=== PATIENT | female | born 1985 | race Caucasian/White ===

== ENCOUNTER 2020-03-10 17:59 | Emergency (ER) | payer OTHER ==
[~2020-03-10] VITALS: Ht 182.9 cm; Wt 133.8 kg
[2020-03-10] MEDS ORDERED: AMITRIPTYLINE H50 MG PO (18:20)
[2020-03-10] MEDS ORDERED: LAMICTAL200 MG PO (18:20)
== END 2020-03-10 21:13 | disposition home or self-care (01) ==
LOC: ED 17:59
DX: L03.211 Cellulitis of face (principal); I10 Essential (primary) hypertension; G43.909 Migraine, unspecified, not intractable, without status migrainosus; Z88.8 Allergy status to other drugs, medicaments and biological substances; Z79.899 Other long term (current) drug therapy
CPT/HCPCS: 80053; 83605; 85025; 96365; 96375; 99283-25; J0696; J1885; J7030

== ENCOUNTER 2020-03-14 13:30 | Inpatient (IN) | payer OTHER ==
[~2020-03-14] VITALS: Ht 182.9 cm; Wt 137.1 kg
[~2020-03-14 13:30] MED LIST: AMITRIPTYLINE H50 MG PO; LAMICTAL200 MG PO
--- OUTSIDE RECORDS SUMMARY | 2020-03-14 13:34 | XMS ---
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 Stephanie VISIT COUNT (12 [address] [facility] TOTAL 2 NOTE: Visits indicate total known visits. ED/UCC VISIT TRACKING (12 MO.) 03/14/2020 13:32 [facility] [place] TYPE: Emergency COMPLAINT: - FLU SYMPTOMS 03/10/2020 18:01 [facility] TYPE: Emergency COMPLAINT: - SORE CHIN DIAGNOSES: - Migraine, unspecified, not intractable, without status migrainosus - Cellulitis of face - Allergy status to other drugs, medicaments and biological substances - Other director long term care (current) drug therapy - Essential (primary) hypertension INPATIENT VISIT TRACKING (12 MO.) No inpatient visits to display in this time frame [email or web address]
[2020-03-14] MEDS ORDERED: ONDANSETRON ODT8 MG PO (13:50)
[2020-03-14] MEDS ORDERED: MUPIROCIN22 GM (14:02)
[2020-03-14] MEDS ORDERED: TRAMADOL HCL50 MG PO (14:03)
[2020-03-14] MEDS ORDERED: CLINDAMYCIN HC300 MG PO (14:03)
--- NOTE | 2020-03-14 19:25 | NUR ---
PT TO CCU AT 1823, TRANSPORTED VIA WHEELCHAIR. PT POLLO ACTIVITY WELL, HOWEVER REPORTS FATIGUE AND "FEEL CRAPPY". PT IS ALERT AND ORIENTED X4, REPORTS MILD NAUSEA, DENIES PAIN, AND REPORTS SOB WITH AMBULATION. PT O2 REMAINS 90% WITH ACTIVITY ON ROOM AIR. PT ABLE TO AMBULATE TO THE BATHROOM WITH MINIMAL STANDBY ASSIST, VOIDS AND THEN BACK TO BED. PT IV SITE IS INTACT, NO REDNESS OR SWELLING, FLUSHES EASILY, PT DENIES PAIN WITH FLUSH. VITALS ARE WNL. PT TAKES PO COUGH MEDS, THEN SHORTLY AFTER VOMITS THEM UP, 10 MG COMPAZINE IV GIVEN. WARM PACK APPLIED TO PT CHIN.
--- NOTE | 2020-03-14 19:28 | NUR ---
report recieved from ccu rn, care of patient assumed at this time. pt resting in bed but awake. provided education about plan of care.
--- NOTE | 2020-03-14 19:45 | NUR ---
PTS OXYGEN SATURATIONS MAINTAINED IN THE MID 80'S WHILE PT IS AWAKE. COACHED PT TO REPOSITION AND TAKE DEEP BREATHS FROM DOOR WAY. SPO2 = 93 ON ROOM AIR AT THIS TIME. WILL CLOSELY MONITOR.
--- NOTE | 2020-03-14 20:04 | NUR ---
INITIAL ASSESSMENT COMPLETED AT THIS TIME. PT O2 SATURATION DECREASED INTO THE LOW 80S AT REST, RR=24. PT PLACED ON 2 L NC FOR SLEEP AT THIS TIME. LUNGS SOUND DIMINISHED IN ALL AIRFIELD. PT COMPLAINS OF ABDOMINAL CRAMPING BUT DENIES NAUSEA AT THIS TIME. VANCOMYCIN INFUSING. OTHER MEDICATIONS GIVEN. DISCUSSED PLAN OF CARE FOR EVENING. PT VERBALIZED AN UNDERSTANDING, ALL QUESTIONS ANSWERED. CALL LIGHT WITHIN REACH. NO FURTHER NEEDS AT THIS TIME.
--- NOTE | 2020-03-14 20:58 | NUR ---
PT RESTING WITH EYES CLOSED. BREATHING EVEN AND UNLABORED. SPO2 = 95 PERCENT ON 2 L NC. IV FLUIDS INFUSING. WILL CONTINUE TO MONITOR.
--- NOTE | 2020-03-14 21:28 | NUR ---
DR MOREL UPDATED ON PTS EPISODES OF DESATURATION WHILE AWAKE. NO NEW ORDERS AT THIS TIME.
--- NOTE | 2020-03-14 22:45 | NUR ---
Pt up in room independently to use bsc. heart rate up to 120 with exertion. spo2 = 90 percent on 2 L NC. rr in the high 20's with movement. pt back in bed at this time.
--- NOTE | 2020-03-14 23:28 | NUR ---
Pt's IV site reddened and painful. dc'd a this time. New IV inserted into left hand. well tolerated by patient. remdesivir infusing. Assessment completed. discussed new medications with patient. oxygen decreased to 1 L NC at this time. call light within reach. pt denies further needs.
--- NOTE | 2020-03-14 23:56 | NUR ---
pt given prn medication for sleep. no further needs at this time.
--- NOTE | 2020-03-15 01:00 | NUR ---
pt oxygen saturations at 88 percent on 1 L nc. Oxygen increased to 2 L at this time. saturations maintained at 92 percent on 2 L.
--- NOTE | 2020-03-15 03:00 | NUR ---
pt sleeping. breathing even and unlabored rr= 22. spo2 =90 percent on 2 L NC.
--- NOTE | 2020-03-15 04:30 | NUR ---
in room at this time to complete assessment. pt denies nausea or abdominal pain. Pt heart rate still goes over 100 bpm with exertion. IV fluids infusing. call light within reach. no further needs at this time.
--- NOTE | 2020-03-15 08:30 | NUR ---
PATIENT ASSESSMENT COMPLETED AND MORNING MEDS GIVEN. PT. ALERT AND ORIENTED. IV SITE WNL AND FLUSHED WELL. LUNGS CLEAR THROUGHOUT. PT. STATES SHES HAD SOME ABDOMINAL CRAMPING BUT DENIES PAIN. PT. EDUCATED ABOUT MEDS AND PLAN OF CARE FOR THE DAY. VOIDED 925ML CLEAR YELLOW URINE. LABS DRAWN. PT. STATES SHE HAS BEEN NAUSEATED FOR 3 DAYS. ORDERED JELLO FOR BREAKFAST AND LUNCH. PT. LEFT RESTING IN BED WITH CALL LIGHT IN REACH.
--- NOTE | 2020-03-15 12:15 | NUR ---
PATIENT ASSESSMENT COMPLETED. PT. ASSISTED WITH BEDBATH AND TOLERATED WELL. IV SITE WNL AND FLUSHED WELL. PT. VOIDED 1100ML IN BEDSIDE COMMODE. EDUCATED ABOUT PRONING AND SITTING UPRIGHT. BEDDING AND GOWN CHANGED. PT. LEFT EATING LUNCH IN THE CHAIR WITH CALL LIGHT IN REACH.
--- NOTE | 2020-03-15 12:38 | EKG ---
[facility] [address] [place] [address] Signed Normal sinus rhythm Minimal voltage criteria for LVH, may be normal variant Borderline ECG No previous ECGs available Confirmed by GUMARO MOREL DO ([id number]) on 03/15/2020 12:38:46 PM Electronically Signed By: GUMARO MOREL DO 03/15/20 1238 PATIENT NAME: SAMUELEMMA Electrocardiogram DATE OF : 89 PHYSICIAN: GUMARO MOREL DO REPORT #: [id number] REPORT IS CONFIDENTIAL AND NOT TO BE RELEASED WITHOUT AUTHORIZATION
--- NOTE | 2020-03-15 14:15 | NUR ---
IN PATIENT'S ROOM TO HELP HER CHANGE GOWN AFTER BLOODY NOSE. BLOOD PRESSURES RE-TAKEN AND DIASTOLIC BP NOTED TO BE ELEVATED, 109-111. PT STATES THIS IS NOT NORMAL FOR HER. WILL CONTINUE TO MONITOR.
--- NOTE | 2020-03-15 15:15 | NUR ---
PATIENT CHECKED ON FROM THE DOOR. PT. AMBULATING FROM THE CHAIR TO THE BED. DENIES NEEDS AND STATES SHE IS DOING WELL.
--- NOTE | 2020-03-15 16:24 | NUR ---
PATIENT ASSESSMENT COMPLETED. PT. ORDERED DINNER AND DENIES NAUSEA. ON 2L NC AND 02 SAT IS 97%. IV SITE WNL. PT. HAS 2/10 PAIN FROM HEADACHE. VOIDED 400ML IN BEDSIDE COMMODE. TEMP. 98.3. PT. LEFT RESTING IN BED WITH CALL LIGHT IN REACH.
--- NOTE | 2020-03-15 17:36 | NUR ---
PATIENT BROUGHT DINNER AND STATED THAT SHE FEELS NAUSEOUS. GIVEN PRN COMPAZINE. PT. REPORTS THAT HER BREATHING FEELS BETTER WHILE SITTING UPRIGHT IN CHAIR AND IN BED. LEFT RESTING IN BED WITH CALL LIGHT IN REACH.
--- NOTE | 2020-03-15 19:30 | NUR ---
Report recieved from CCU RN. Care of patient assumed at this time. PT sleeping in room, breating even and unlabored. SPO2 = 98 percent on room air.
--- NOTE | 2020-03-15 20:25 | NUR ---
In room for medication administration and to complete assessment. Pt alert and oriented. Hear rate in the 90s at rest spo2 =98 percent on 2 L NC. turned Oxygen down to 1 L at this time. Established plan of care for evening. Pt agreeable to trying cpap for the night. assisted with repositioning in the bed. call light within reach. no further needs at this time.
--- NOTE | 2020-03-15 22:00 | NUR ---
PT ASLEEP ON CPAP. SPO2 = 90% HEART RATE IN THE 80'S AT REST. CALL LIGHT AND PERSONAL BELONGINGS WITHIN REACH. NO ASSESSED NEEDS AT THIS TIME.
--- NOTE | 2020-03-15 22:45 | NUR ---
RT IN ROOM AT THIS TIME TO PLACE PATIENT ON BIPAP.
--- NOTE | 2020-03-16 | NUR ---
RT IN ROOM AT THIS TIME. PT RESTING ON CPAP. SPO2 = 92% UP TO BATHROOM. HEART RATE UP TO 110 WITH ACTIVITY. PT DENIES ANY NEEDS AT THIS TIME.
--- NOTE | 2020-03-16 02:00 | NUR ---
pt up to void. Used call light to assist with putting Cpap back in place. call light within reach. no further needs.
--- NOTE | 2020-03-16 04:54 | NUR ---
assessment completed and AM labs drawn at this time. Pt awake. denies shortness of breath or nausea. blood draw well tolerated. discussed plan of care for day shift. questions answered. call light within reach. no futher needs a this time.
--- NOTE | 2020-03-16 09:52 | NUR ---
REPORT RECEIVED FROM NIGHT RN AND PT. CARE RESUMED. PATIENT ASSESSMENT COMPLETED AND MORNING MEDS GIVEN. PT. EATING BREAKFAST IN THE CHAIR. DENIES PAIN AND NAUSEA. IV SITE WNL AND FLUSHES WELL. IV FLUIDS DC'D AND IV SALINE LOCKED. PT. REPORTS SHE IS NO LONGER DIZZY WITH AMBULATION. VOIDED 900 ML CLEAR YELLOW URINE IN BEDSIDE COMMODE. PLAN TO MOVE PT. TO ROOM 127 LATER IN THE DAY SO SHE CAN SHOWER.
--- NOTE | 2020-03-16 10:27 | NUR ---
PATIENT TRANSFERRED TO ROOM 126. PT. AMBULATED INDEPENDENTLY ON ROOM AIR TO THE ROOM. HR INCREASED TO 122 WITH AMBULATION, BUT PT. O2 SAT REMAINED ABOVE 94%. PT. LEFT RESTING IN BED WITH CALL LIGHT IN REACH.
--- NOTE | 2020-03-16 11:00 | NUR ---
PATIENT TAKING A SHOWER INDEPENDENTLY. WILL CONTINUE TO MONITOR.
--- NOTE | 2020-03-16 11:45 | NUR ---
PATIENT COMPLETED SHOWER AND PERSONAL CARE INDEPENDENTLY. O2 SAT REMAINED ABOVE 95% AND PT. DENIED DIZZINESS. PT. BROUGHT LUNCH AND LEFT RESTING IN BED WITH CALL LIGHT IN REACH.
--- NOTE | 2020-03-16 15:45 | NUR ---
PATIENT ASSESSMENT COMPLETED. TEMP. WAS 99F AND LUNGS SOUND CLEAR THROUGHOUT. IV SITE WNL. PT. ORDERED DINNER AND DENIES PAIN. BROUGHT WARM BLANKETS AND FRESH WATER. PT. LEFT RESTING WITH CALL LIGHT IN REACH.
--- NOTE | 2020-03-16 17:00 | NUR ---
PATIENT BROUGHT DINNER AND DENIED FURTHER NEED. LEFT RESTING IN BED.
--- NOTE | 2020-03-16 19:22 | NUR ---
report recieved from day shift RN, care of patient assumed at his time.
--- NOTE | 2020-03-16 20:11 | NUR ---
iN ROOM FOR ASSESSMENT. PT ON COUCH FACETIMING . DENIES FEELING NAUSEATED OR SHORT OF BREATH. PT AMBULATING INDEPENDTLY IN THE ROOM WITH SATURATIONS MAINTAINED GREATER THAT 95 % ON ROOM AIR. LUNGS SOUND CLEAR THROUGH OUT. ESTABLISHED PLAN OF CARE FOR NIGHT. IV MEDICAITION INFUSING. pt REQUESTED PRN MEDICATION FOR SLEEP. PLAN FOR PATIENT TO CALL WHEN READY TO HAVE CPAP ON. cALL lIGHT WITHIN REACH. NO FURTHER NEEDS AT THIS TIME.
--- NOTE | 2020-03-16 22:30 | NUR ---
RT in room at this time to place PT on cpap before bed.
--- NOTE | 2020-03-17 02:14 | NUR ---
PT UP TO BATHROOM. HEART RATE UP TO 110 WITH EXERTION. SATURATIONS IN THE MID 90S. BACK IN BED, CPAP IN PLACE. DENIES NEEDS AT THIS TIME.
--- NOTE | 2020-03-17 02:40 | NUR ---
responded to pt call light. pt requests to have Cpap off, stating "Its uncomfortable". pt on room air at this time. Saturations at 93%. will continue to monitor.
--- NOTE | 2020-03-17 04:00 | NUR ---
pt resting. breathing even and unlabored. rr=18 spo2 =96 percent on room air. NO assessed needs at this time.
--- NOTE | 2020-03-17 06:01 | NUR ---
in room to draw blood and assess Pt. Pt awake in room. denies any discomfort. bllod draw well tolerated. call light within reach. given fresh water. denies further needs at this time.
--- NOTE | 2020-03-17 08:22 | NUR ---
Spoke with Mima for cm assessment. She plans on dc to home today with her family who have also now tested +. States they are doing well, so can assist her. Family and friends have offered to assist with grocery shopping and errands. She will isolate 20 days following [facility]. instructions.
--- NOTE | 2020-03-17 09:29 | NUR ---
REPORT RECIEVED FROM NIGHT RN AND PT. CARE RESUMED. PT. SITTING IN THE CHAIR, DENIES PAIN AND NAUSEA. RT IN THE ROOM ASSESSING PT. BREATHING. BREATHING UNLABORED AND LUNGS CLEAR. TEMP. 98.7. IV SITE WNL AND FLUSHED WELL. MORNING MEDS GIVEN. PT. LEFT EATING BREAKFAST IN THE CHAIR WITH CALL LIGHT IN REACH.
--- NOTE | 2020-03-17 10:44 | NUR ---
PATIENT VOIDED 200ML IN THE TOILET. FINISHED BREAKFAST AND DENIED FURTHER NEEDS.
[2020-03-17] MEDS ORDERED: SULFAMETHOXAZO1 EAC1 PO (10:51)
[2020-03-17] MEDS ORDERED: AMLODIPINE BESYL5 MG PO (10:52)
--- NOTE | 2020-03-17 11:55 | NUR ---
PATIENT EDUCATED ON DISCHARGE INSTRUCTIONS. PCP WILL CONTACT FOR FOLLOW UP APPOINTMENT. IV REMOVED WITH CATH INTACT. PT. LEFT BY WHEELCHAIR WITH PERSONAL BELONGINGS. PICKED UP BY .
== END 2020-03-17 11:55 | disposition home or self-care (01) | DRG 177 ==
LOC: ED 13:30 → CCU 13:33
PROVIDERS: ADMIT Student in an Organized Health Care Education/Training Program; ATTEND Student in an Organized Health Care Education/Training Program
PROC: XW033E5 Introduction of Remdesivir Anti-infective into Peripheral Vein, Percutaneous Approach, New Technology Group 5 (ICD-10-PCS; principal; 2020-03-14)
DX: U07.1 COVID-19 (principal); J96.01 Acute respiratory failure with hypoxia; L02.01 Cutaneous abscess of face; G47.33 Obstructive sleep apnea (adult) (pediatric); I10 Essential (primary) hypertension; F39 Unspecified mood [affective] disorder; G43.909 Migraine, unspecified, not intractable, without status migrainosus; G47.00 Insomnia, unspecified; Z87.442 Personal history of urinary calculi; Z88.8 Allergy status to other drugs, medicaments and biological substances; Z79.899 Other long term (current) drug therapy; Z79.891 Long term (current) use of opiate analgesic
CPT/HCPCS: 71045; 71260; 80053; 82803; 83605; 83690; 84703; 85025; 85379; 93005; 93010; 94660; 94667; 94668; 94760; 96365; 96366; 96372; 96375; 99285-25; C9803; G0378; J0780; J1100; J1650; J2405; J3370; J7030; J7050; J7060; J7121; J8540; Q9967; U0003